=== PATIENT | female | born 1990 | race Caucasian/White ===

== ENCOUNTER 2017-02-22 11:37 | Emergency (ER) | payer MEDICAID ==
[~2017-02-22] VITALS: Ht 162.6 cm; Wt 72.6 kg
[~2017-02-22 11:37] MED LIST: BCP; PREN-129 PO
[2017-02-22 12:12] LABS: Urine Bilirubin Negative (Negative); Urine Blood Negative /uL (Negative); Urine Color Yellow (Yellow); Urine Glucose Normal (Normal); Urine Ketone Negative (Negative); Urine Nitrite Negative (Negative); Urine RBC 2 /hpf (0 - 4); Urine Squamous Epithelial Cell FEW /hpf (<5); Urine Urobilinogen Normal (Negative)
[2017-02-22 12:33] LABS: Basophils # (auto) 0.1 uL; CONDITION Y; Eosinophils # (auto) 0.1 uL; Eosinophils % (auto) 1.5 % (0.0-7.0); Hematocrit 41.4 % (36.0-46.0); Hemoglobin 14.3 g/dL (12.2-16.2); Lymphocytes # (auto) 1.6 uL; Lymphocytes % (auto) 24.3 % (10.0-50.0); Mean Corpuscular Hemoglobin 31.2 pg (28.0-32.0); Mean Corpuscular Hgb Conc. 34.5 g/dL (32.0-36.0); Mean Corpuscular Volume 90.3 fL (80.0-100.0); Mean Platelet Volume 7.8 fL (7.4-10.4); Monocytes # (auto) 0.3 uL; Neutrophils # (auto) 4.6 uL; Neutrophils % (auto) 68.2 % (37.0-80.0); Platelet Count (auto) 289 10^3/uL (140-450); Red Cell Distribution Width 12.8 % (11.6-16.0); White Blood Cell 6.7 10^3/uL (4.4-10.8)
[2017-02-22 12:58] LABS: Albumin 3.8 g/dL (3.4-5.0); BUN/Creatinine Ratio 18.5; Bilirubin, Total 0.5 mg/dL (0.2-1.0); Calcium 8.6 mg/dL (8.5-10.1); Total Protein 7.3 g/dL (6.4-8.2)
[2017-02-22 12:59] VITALS: BP 126/63
[2017-02-22] MEDS ORDERED: cefTRIAXone SOD 1,000 MG VL IM ONE (13:15)
[2017-02-22] MEDS ORDERED: KETOROLAC TROMETH 60MG/2ML VIAL IM ONE (13:15)
== END 2017-02-22 13:13 | disposition home or self-care (01) ==
LOC: ER 11:37
DX: N12 Tubulo-interstitial nephritis, not specified as acute or chronic (principal); N39.0 Urinary tract infection, site not specified; J45.909 Unspecified asthma, uncomplicated; Z79.899 Other long term (current) drug therapy
CPT/HCPCS: 36415; 80053; 81001; 81025; 85025; 96372; 99284; J0696; J1885

== ENCOUNTER 2017-03-08 21:40 | Emergency (ER) | payer MEDICAID ==
[~2017-03-08] VITALS: Ht 162.6 cm; Wt 72.6 kg
[2017-03-08 22:16] VITALS: BP 129/73
[2017-03-08 22:40] LABS: Urine Bilirubin Negative (Negative); Urine Blood Negative /uL (Negative); Urine Color Yellow (Yellow); Urine Glucose Normal (Normal); Urine Ketone Negative (Negative); Urine Mucus FEW (None Seen); Urine Nitrite Negative (Negative); Urine RBC 1 /hpf (0 - 4); Urine Squamous Epithelial Cell FEW /hpf (<5); Urine Urobilinogen Normal (Negative)
[2017-03-08 22:48] LABS: Basophils # (auto) 0 uL; Basophils % (auto) 0.4 % (0.0-2.0); CONDITION Y; Eosinophils # (auto) 0.2 uL; Eosinophils % (auto) 1.9 % (0.0-7.0); Hemoglobin 14.3 g/dL (12.2-16.2); Lymphocytes # (auto) 2.2 uL; Lymphocytes % (auto) 26.7 % (10.0-50.0); Mean Corpuscular Hemoglobin 31.2 pg (28.0-32.0); Mean Corpuscular Hgb Conc. 34.1 g/dL (32.0-36.0); Mean Corpuscular Volume 91.4 fL (80.0-100.0); Mean Platelet Volume 7.6 fL (7.4-10.4); Monocytes # (auto) 0.5 uL; Monocytes % (auto) 6.4 % (0.0-12.0); Neutrophils # (auto) 5.3 uL; Neutrophils % (auto) 64.6 % (37.0-80.0); Platelet Count (auto) 368 10^3/uL (140-450); Red Cell Distribution Width 13.1 % (11.6-16.0); White Blood Cell 8.2 10^3/uL (4.4-10.8)
[2017-03-08 23:00] LABS: INR 1.06 (0.9-1.15); Partial Thromboplastin Time 27.2 sec (22.64-33.71); Prothrombin Time 11.6 sec (9.37-12.3)
[2017-03-08 23:13] LABS: Albumin 3.8 g/dL (3.4-5.0); BUN/Creatinine Ratio 13.8; Bilirubin, Total 0.2 mg/dL (0.2-1.0); Calcium 9.1 mg/dL (8.5-10.1); Potassium 3.8 mmol/L (3.5-5.1); Total Protein 7.7 g/dL (6.4-8.2)
== END 2017-03-09 03:51 | disposition left against medical advice (07) ==
LOC: ER 21:48
DX: R10.9 Unspecified abdominal pain (principal); Z53.21 Procedure and treatment not carried out due to patient leaving prior to being seen by health care provider
CPT/HCPCS: 36415; 80053; 81001; 81025; 82150; 83690; 84702; 85025; 85610; 85730

== ENCOUNTER 2017-03-19 20:04 | Emergency (ER) | payer MEDICAID ==
[~2017-03-19] VITALS: Ht 162.6 cm; Wt 72.6 kg
[2017-03-19 20:51] LABS: Basophils # (auto) 0.1 uL; Basophils % (auto) 0.7 % (0.0-2.0); CONDITION Y; Eosinophils # (auto) 0.1 uL; Eosinophils % (auto) 1.3 % (0.0-7.0); Hematocrit 40.6 % (36.0-46.0); Lymphocytes # (auto) 2.2 uL; Lymphocytes % (auto) 27.7 % (10.0-50.0); Mean Corpuscular Hemoglobin 31.5 pg (28.0-32.0); Mean Corpuscular Hgb Conc. 34.5 g/dL (32.0-36.0); Mean Corpuscular Volume 91.3 fL (80.0-100.0); Mean Platelet Volume 7.5 fL (7.4-10.4); Monocytes # (auto) 0.5 uL; Monocytes % (auto) 6.1 % (0.0-12.0); Neutrophils # (auto) 5.1 uL; Neutrophils % (auto) 64.2 % (37.0-80.0); Platelet Count (auto) 323 10^3/uL (140-450); White Blood Cell 7.9 10^3/uL (4.4-10.8)
[2017-03-19 21:06] LABS: INR 1.07 (0.9-1.15); Partial Thromboplastin Time 26.5 sec (22.64-33.71); Prothrombin Time 11.7 sec (9.37-12.3)
[2017-03-19 21:17] LABS: Urine Bilirubin Negative (Negative); Urine Blood Negative /uL (Negative); Urine Color Yellow (Yellow); Urine Glucose Normal (Normal); Urine Ketone Negative (Negative); Urine Mucus FEW (None Seen); Urine Nitrite Negative (Negative); Urine RBC 4 /hpf (0 - 4); Urine Squamous Epithelial Cell FEW /hpf (<5); Urine Urobilinogen Normal (Negative)
[2017-03-19 21:23] LABS: Albumin 3.8 g/dL (3.4-5.0); BUN/Creatinine Ratio 13.5; Bilirubin, Total 0.2 mg/dL (0.2-1.0); Potassium 3.8 mmol/L (3.5-5.1); Total Protein 7.7 g/dL (6.4-8.2)
[2017-03-19] MEDS ORDERED: cefTRIAXone 1GM/50ML D5W 50 ML IV ONE (22:15)
[2017-03-19] MEDS ORDERED: ONDANSETRON HCL 4 MG/2 ML VIAL IV ONE (22:15)
[2017-03-19] MEDS ORDERED: KETOROLAC TROMETH 30 MG/ML 1ML VIAL IV ONE (22:15)
[2017-03-19] MEDS ORDERED: HYDROmorphone HCL 2 MG/ML VL IV ONE (22:15)
[2017-03-19] MEDS ORDERED: diphenhdrAMINE HCL 50 MG/1 ML VL ONE (23:01)
[2017-03-19] MEDS ORDERED: diphenhdrAMINE HCL 50 MG/1 ML VL IV ONE (23:15)
[2017-03-19 23:54] VITALS: BP 110/62
== END 2017-03-19 23:57 | disposition home or self-care (01) ==
LOC: ER 20:07
DX: N12 Tubulo-interstitial nephritis, not specified as acute or chronic (principal); J45.909 Unspecified asthma, uncomplicated
CPT/HCPCS: 36415; 74176; 80053; 81001; 81025; 82150; 83690; 85025; 85610; 85730; 87086; 96365; 96375; 99285; J0696; J1170; J1200; J1885; J2405

== ENCOUNTER 2017-12-15 21:54 | Emergency (ER) | payer MEDICAID | END 2017-12-15 22:10 | disposition left against medical advice (07) | LOC: ER 22:01 | DX: R00.2 Palpitations (principal); Z53.21 Procedure and treatment not carried out due to patient leaving prior to being seen by health care provider ==

== ENCOUNTER 2018-04-29 19:57 | Emergency (ER) | payer MEDICAID ==
[~2018-04-29] VITALS: Ht 162.6 cm; Wt 83.9 kg
[2018-04-29 20:37] VITALS: BP 121/86
== END 2018-04-30 02:10 | disposition home or self-care (01) ==
LOC: ER 19:57
DX: T19.2XXA Foreign body in vulva and vagina, initial encounter (principal); J45.909 Unspecified asthma, uncomplicated; N18.9 Chronic kidney disease, unspecified; Z30.8 Encounter for other contraceptive management; X58.XXXA Exposure to other specified factors, initial encounter; Y93.89 Activity, other specified; Y99.8 Other external cause status; Y92.89 Other specified places as the place of occurrence of the external cause

== ENCOUNTER 2018-05-18 21:13 | Emergency (ER) | payer MEDICAID ==
[~2018-05-18] VITALS: Ht 162.6 cm; Wt 81.6 kg
[2018-05-18 22:32] LABS: Urine Bacteria MANY /hpf (None Seen); Urine Blood Negative /uL (Negative); Urine Mucus FEW (None Seen); Urine Specific Gravity 1.022 (1.001-1.035); Urine WBC 3 /hpf (0 - 5)
[2018-05-18 22:40] LABS: Basophils # (auto) 0.1 uL; Basophils % (auto) 0.9 % (0.0-2.0); Eosinophils # (auto) 0.1 uL; Eosinophils % (auto) 0.6 % (0.0-7.0); Hematocrit 42.2 % (36.0-46.0); Hemoglobin 14.3 g/dL (12.2-16.2); Lymphocytes # (auto) 1.7 uL; Lymphocytes % (auto) 17.4 % (10.0-50.0); Mean Corpuscular Hemoglobin 31.7 pg (28.0-32.0); Mean Corpuscular Volume 93.2 fL (80.0-100.0); Monocytes # (auto) 0.6 uL; Monocytes % (auto) 6.2 % (0.0-12.0); Neutrophils # (auto) 7.5 uL; Neutrophils % (auto) 74.9 % (37.0-80.0); Nucleated Red Blood Cells % 0.1 %; Platelet Count (auto) 303 10^3/uL (140-450); Red Blood Cells 4.52 10^6/uL (4.0-5.20); Red Cell Distribution Width 12.7 % (11.8-14.3)
[2018-05-18 23:03] LABS: Albumin 3.3 g/dL (3.4-5.0); BUN/Creatinine Ratio 14.2; Calcium 8.3 mg/dL (8.5-10.1); Potassium 3.8 mmol/L (3.5-5.1)
[2018-05-18 23:06] LABS: Bilirubin, Total 0.2 mg/dL (0.2-1.0); Total Protein 7.2 g/dL (6.4-8.2)
[2018-05-19] MEDS ORDERED: KETOROLAC TROMETH 60MG/2ML VIAL IM ONE (03:00)
[2018-05-19] MEDS ORDERED: KETOROLAC TROMETH 30 MG/ML 1ML VIAL IV ONE (03:15)
[2018-05-19 04:00] VITALS: BP 122/76
== END 2018-05-19 04:08 | disposition home or self-care (01) ==
LOC: ER 21:13
DX: N20.0 Calculus of kidney (principal); N18.9 Chronic kidney disease, unspecified; J45.909 Unspecified asthma, uncomplicated
CPT/HCPCS: 36415; 74176; 80053; 81001; 81025; 83690; 85025; 96374; 99285; J1885

== ENCOUNTER 2018-06-09 20:54 | Emergency (ER) | payer MEDICAID ==
[~2018-06-09] VITALS: Ht 162.6 cm; Wt 81.6 kg
[2018-06-09 21:16] VITALS: BP 139/79
[2018-06-09 21:57] LABS: Basophils # (auto) 0.1 uL; Basophils % (auto) 1.2 % (0.0-2.0); Eosinophils # (auto) 0.1 uL; Eosinophils % (auto) 1.3 % (0.0-7.0); Hematocrit 42.8 % (36.0-46.0); Hemoglobin 14.6 g/dL (12.2-16.2); Lymphocytes # (auto) 2.3 uL; Lymphocytes % (auto) 25.5 % (10.0-50.0); Mean Corpuscular Hgb Conc. 34.2 g/dL (32.0-36.0); Mean Corpuscular Volume 93.7 fL (80.0-100.0); Monocytes # (auto) 0.6 uL; Monocytes % (auto) 6.8 % (0.0-12.0); Neutrophils # (auto) 5.9 uL; Neutrophils % (auto) 65.2 % (37.0-80.0); Platelet Count (auto) 340 10^3/uL (140-450); Red Blood Cells 4.57 10^6/uL (4.0-5.20); Red Cell Distribution Width 12.4 % (11.8-14.3)
[2018-06-09 22:19] LABS: Albumin 3.5 g/dL (3.4-5.0); BUN/Creatinine Ratio 12.7; Calcium 8.7 mg/dL (8.5-10.1)
[2018-06-09 22:21] LABS: Bilirubin, Total 0.2 mg/dL (0.2-1.0); Total Protein 7.5 g/dL (6.4-8.2)
[2018-06-09 22:36] LABS: Urine Bacteria NONE SEEN /hpf (None Seen); Urine Blood Negative /uL (Negative); Urine Specific Gravity 1.021 (1.001-1.035); Urine WBC 5 /hpf (0 - 5)
== END 2018-06-10 01:07 | disposition left against medical advice (07) ==
LOC: ER 20:54
DX: R73.9 Hyperglycemia, unspecified (principal); Z53.21 Procedure and treatment not carried out due to patient leaving prior to being seen by health care provider
CPT/HCPCS: 36415; 80053; 81001; 81025; 82962; 83036; 83735; 85025

== ENCOUNTER 2018-07-01 16:08 | Emergency (ER) | payer MEDICAID ==
[~2018-07-01] VITALS: Ht 162.6 cm; Wt 81.6 kg
[2018-07-01 16:31] VITALS: BP 114/56
== END 2018-07-01 18:28 | disposition left against medical advice (07) ==
LOC: ER 16:17
DX: M25.572 Pain in left ankle and joints of left foot (principal); Z53.21 Procedure and treatment not carried out due to patient leaving prior to being seen by health care provider; W01.0XXA Fall on same level from slipping, tripping and stumbling without subsequent striking against object, initial encounter; Y93.89 Activity, other specified; Y92.89 Other specified places as the place of occurrence of the external cause; Y99.8 Other external cause status

== ENCOUNTER 2019-02-23 19:26 | Emergency (ER) | payer MEDICAID ==
[~2019-02-23] VITALS: Ht 160 cm; Wt 83.9 kg
[2019-02-23 20:28] LABS: Basophils # (auto) 0.1 uL; Basophils % (auto) 0.7 % (0.0-2.0); Eosinophils # (auto) 0.1 uL; Eosinophils % (auto) 1.5 % (0.0-7.0); Hematocrit 42.4 % (36.0-46.0); Hemoglobin 14.7 g/dL (12.2-16.2); Lymphocytes # (auto) 2.2 uL; Lymphocytes % (auto) 24.2 % (10.0-50.0); Mean Corpuscular Hemoglobin 32.2 pg (28.0-32.0); Mean Corpuscular Hgb Conc. 34.6 g/dL (32.0-36.0); Monocytes # (auto) 0.6 uL; Monocytes % (auto) 7.1 % (0.0-12.0); Neutrophils % (auto) 66.5 % (37.0-80.0); Platelet Count (auto) 322 10^3/uL (140-450); Red Blood Cells 4.56 10^6/uL (4.0-5.20); Red Cell Distribution Width 12.8 % (11.8-14.3); White Blood Cell 9.1 10^3/uL (4.4-10.8)
[2019-02-23 20:35] LABS: Urine Bacteria FEW /hpf (None Seen); Urine Blood Negative /uL (Negative); Urine Mucus FEW (None Seen); Urine Specific Gravity 1.016 (1.001-1.035); Urine WBC 13 /hpf (0 - 5)
[2019-02-23 20:44] LABS: Albumin 3.6 g/dL (3.4-5.0); Calcium 8.8 mg/dL (8.5-10.1); Potassium 4.1 mmol/L (3.5-5.1)
[2019-02-23 20:47] LABS: BUN/Creatinine Ratio 14.6; Bilirubin, Total 0.3 mg/dL (0.2-1.0); Total Protein 7.4 g/dL (6.4-8.2)
[2019-02-23] MEDS ORDERED: SODIUM CHLORIDE 0.9% 1,000 ML IV ONE ×2 (23:00)
[2019-02-23] MEDS ORDERED: ONDANSETRON HCL 4 MG/2 ML VIAL IV ONE (23:00)
[2019-02-23] MEDS ORDERED: MORPHINE SULFATE 4 MG/ML SYR/VIAL IV ONE (23:00)
[2019-02-23 23:43] LABS: Amylase 38 U/L (25-115); Lipase 127 U/L (73-393)
[2019-02-24 00:23] VITALS: BP 114/76
[2019-02-24] MEDS ORDERED: cefTRIAXone 1GM/50ML D5W 50 ML IV ONE (00:30)
== END 2019-02-24 00:54 | disposition home or self-care (01) ==
LOC: ER 19:26
DX: N39.0 Urinary tract infection, site not specified (principal); R19.7 Diarrhea, unspecified; R11.0 Nausea
CPT/HCPCS: 36415; 80053; 81001; 82150; 83690; 84702; 85025; 96361; 96365; 96375; 99283; J0696; J2270; J2405; J7030

== ENCOUNTER 2019-04-08 17:04 | Emergency (ER) | payer MEDICAID ==
[~2019-04-08] VITALS: Ht 160 cm; Wt 81.6 kg
[2019-04-08 17:59] LABS: Urine Pregnacy Test Negative (Negative)
[2019-04-08 18:01] LABS: Urine Bacteria FEW /hpf (None Seen); Urine Blood TRACE /uL (Negative); Urine Hyaline Cast FEW /lpf (0 - 2); Urine Mucus FEW (None Seen); Urine WBC 19 /hpf (0 - 5)
[2019-04-08 18:09] LABS: Alcohol, Urine < 3.0 mg/dL (0-5); Amphetamine Screen, Urine NEGATIVE (NEGATIVE); Barbiturate Scree,Urine NEGATIVE (NEGATIVE); Benzodiazephine Screen, Urine NEGATIVE (NEGATIVE); Cannabinoid Screen, Urine NEGATIVE (NEGATIVE); Cocaine Screen, Urine NEGATIVE (NEGATIVE); Opiate Scree,Urine NEGATIVE (NEGATIVE); Phencyclidine Screen, Urine NEGATIVE (NEGATIVE)
[2019-04-08 18:13] LABS: Basophils # (auto) 0.1 uL; Basophils % (auto) 0.7 % (0.0-2.0); Eosinophils # (auto) 0.1 uL; Eosinophils % (auto) 0.9 % (0.0-7.0); Hematocrit 42.6 % (36.0-46.0); Hemoglobin 14.5 g/dL (12.2-16.2); Lymphocytes # (auto) 2.2 uL; Lymphocytes % (auto) 26.7 % (10.0-50.0); Monocytes # (auto) 0.7 uL; Monocytes % (auto) 8.2 % (0.0-12.0); Neutrophils # (auto) 5.2 uL; Neutrophils % (auto) 63.5 % (37.0-80.0); Platelet Count (auto) 321 10^3/uL (140-450); Red Blood Cells 4.53 10^6/uL (4.0-5.20); Red Cell Distribution Width 12.9 % (11.8-14.3); White Blood Cell 8.2 10^3/uL (4.4-10.8)
[2019-04-08 18:31] LABS: Albumin 3.7 g/dL (3.4-5.0); BUN/Creatinine Ratio 9.4; Calcium 9.2 mg/dL (8.5-10.1); Potassium 3.8 mmol/L (3.5-5.1)
[2019-04-08 18:34] LABS: Bilirubin, Total 0.3 mg/dL (0.2-1.0); Total Protein 7.5 g/dL (6.4-8.2)
[2019-04-08] MEDS ORDERED: PHENAZOPYRIDINE HCL 100 MG TAB PO ONE (19:15)
[2019-04-08 19:33] VITALS: BP 108/75
== END 2019-04-08 19:51 | disposition home or self-care (01) ==
LOC: ER 17:07
DX: N39.0 Urinary tract infection, site not specified (principal); J45.909 Unspecified asthma, uncomplicated; Z87.442 Personal history of urinary calculi
CPT/HCPCS: 36415; 80053; 80307; 81001; 81025; 83690; 85025

== ENCOUNTER 2019-05-18 17:33 | Emergency (ER) | payer MEDICAID ==
[~2019-05-18] VITALS: Ht 162.6 cm; Wt 81.6 kg
[2019-05-18 18:15] VITALS: BP 142/70
== END 2019-05-18 23:01 | disposition left against medical advice (07) ==
LOC: ER 17:49
DX: M79.671 Pain in right foot (principal); Z53.21 Procedure and treatment not carried out due to patient leaving prior to being seen by health care provider

== ENCOUNTER 2019-08-24 19:46 | Emergency (ER) | payer MEDICAID | END 2019-08-24 20:45 | disposition left against medical advice (07) | LOC: ER 19:49 | DX: M25.531 Pain in right wrist (principal); Z53.21 Procedure and treatment not carried out due to patient leaving prior to being seen by health care provider ==

== ENCOUNTER 2020-01-10 19:18 | Emergency (ER) | payer MEDICAID ==
[~2020-01-10] VITALS: Ht 160 cm; Wt 81.6 kg
[2020-01-10 21:04] VITALS: BP 117/77
== END 2020-01-10 22:28 | disposition home or self-care (01) ==
LOC: ER 19:18
DX: H01.004 Unspecified blepharitis left upper eyelid (principal); J45.909 Unspecified asthma, uncomplicated; N18.9 Chronic kidney disease, unspecified; Z87.442 Personal history of urinary calculi

== ENCOUNTER 2020-04-15 20:39 | Emergency (ER) | payer MEDICAID ==
[~2020-04-15] VITALS: Ht 160 cm; Wt 86.2 kg
[2020-04-15 21:30] LABS: Urine Bacteria FEW /hpf (None Seen); Urine Blood Negative /uL (Negative); Urine Mucus FEW (None Seen); Urine Specific Gravity 1.015 (1.001-1.035); Urine WBC 30 /hpf (0 - 5)
[2020-04-15] MEDS ORDERED: KETOROLAC TROMETH 60MG/2ML VIAL IM ONE (22:45)
[2020-04-15] MEDS ORDERED: cefTRIAXone SOD 1,000 MG VL IM ONE (22:45)
[2020-04-15 23:06] LABS: Basophils # (auto) 0.1 10 ^3/uL (0-0.2); Basophils % (auto) 0.9 % (0.0-2.0); Eosinophils # (auto) 0.1 10 ^3/uL (0-0.8); Eosinophils % (auto) 1.6 % (0.0-7.0); Hematocrit 41.1 % (36.0-46.0); Hemoglobin 13.9 g/dL (12.2-16.2); Lymphocytes # (auto) 2.8 10 ^3/uL (0.4-5.4); Lymphocytes % (auto) 31.1 % (10.0-50.0); Mean Corpuscular Hemoglobin 32.1 pg (28.0-32.0); Mean Corpuscular Hgb Conc. 33.8 g/dL (32.0-36.0); Mean Corpuscular Volume 95.1 fL (80.0-100.0); Monocytes # (auto) 0.6 10 ^3/uL (0-1.3); Monocytes % (auto) 7.1 % (0.0-12.0); Neutrophils # (auto) 5.4 10 ^3/uL (1.6-8.6); Neutrophils % (auto) 59.3 % (37.0-80.0); Platelet Count (auto) 323 10^3/uL (140-450); Red Blood Cells 4.33 10^6/uL (4.0-5.20); Red Cell Distribution Width 12.5 % (11.8-14.3); White Blood Cell 9.1 10^3/uL (4.4-10.8)
[2020-04-15 23:30] LABS: Albumin 3.6 g/dL (3.4-5.0); Calcium 9.1 mg/dL (8.5-10.1); Potassium 3.9 mmol/L (3.5-5.1)
[2020-04-15 23:32] LABS: BUN/Creatinine Ratio 13.9
[2020-04-15 23:34] LABS: Bilirubin, Total 0.3 mg/dL (0.2-1.0); Total Protein 7.2 g/dL (6.4-8.2)
[2020-04-16 01:00] VITALS: BP 120/70
== END 2020-04-16 00:49 | disposition home or self-care (01) ==
LOC: ER 20:39
DX: N20.0 Calculus of kidney (principal); N39.0 Urinary tract infection, site not specified; N83.201 Unspecified ovarian cyst, right side; K42.9 Umbilical hernia without obstruction or gangrene; N18.3 Chronic kidney disease, stage 3 (moderate); J45.909 Unspecified asthma, uncomplicated
CPT/HCPCS: 36415; 74176; 76830; 76856; 80053; 81001; 84702; 85025

== ENCOUNTER 2021-02-17 13:33 | Emergency (ER) | payer MEDICAID ==
[~2021-02-17] VITALS: Ht 160 cm; Wt 90.7 kg
[2021-02-17 13:42] VITALS: BP 129/77
[2021-02-17] MEDS ORDERED: KETOROLAC TROMETH 30 MG/ML 1ML VIAL IV ONE (14:00)
[2021-02-17] MEDS ORDERED: SODIUM CHLORIDE 0.9% 1,000 ML IVB ONE (14:00)
[2021-02-17 14:30] LABS: Basophils # (auto) 0 10 ^3/uL (0-0.2); Basophils % (auto) 0.4 % (0.0-2.0); Eosinophils # (auto) 0.1 10 ^3/uL (0-0.8); Eosinophils % (auto) 0.7 % (0.0-7.0); Hematocrit 42.1 % (36.0-46.0); Hemoglobin 14.7 g/dL (12.2-16.2); Lymphocytes # (auto) 1.6 10 ^3/uL (0.4-5.4); Lymphocytes % (auto) 18.3 % (10.0-50.0); Mean Corpuscular Hemoglobin 32.7 pg (28.0-32.0); Mean Corpuscular Hgb Conc. 34.9 g/dL (32.0-36.0); Mean Corpuscular Volume 93.9 fL (80.0-100.0); Monocytes # (auto) 0.4 10 ^3/uL (0-1.3); Monocytes % (auto) 4.7 % (0.0-12.0); Neutrophils # (auto) 6.5 10 ^3/uL (1.6-8.6); Neutrophils % (auto) 75.9 % (37.0-80.0); Nucleated Red Blood Cells % 0.1 %; Red Blood Cells 4.48 10^6/uL (4.0-5.20); Red Cell Distribution Width 12.7 % (11.8-14.3); White Blood Cell 8.6 10^3/uL (4.4-10.8)
[2021-02-17 14:47] LABS: Albumin 3.8 g/dL (3.4-5.0); Calcium 8.7 mg/dL (8.5-10.1)
[2021-02-17 14:49] LABS: BUN/Creatinine Ratio 14.1
[2021-02-17 14:52] LABS: Bilirubin, Total 0.6 mg/dL (0.2-1.0); Total Protein 7.6 g/dL (6.4-8.2)
[2021-02-17 14:53] LABS: Urine Bacteria FEW /hpf (None Seen); Urine Blood Negative /uL (Negative); Urine Mucus FEW (None Seen); Urine Specific Gravity 1.022 (1.001-1.035); Urine WBC 7 /hpf (0 - 5)
== END 2021-02-17 16:00 | disposition home or self-care (01) ==
LOC: ER 13:33
DX: N39.0 Urinary tract infection, site not specified (principal); N18.9 Chronic kidney disease, unspecified; J45.909 Unspecified asthma, uncomplicated; E78.5 Hyperlipidemia, unspecified; Z87.891 Personal history of nicotine dependence; Z79.899 Other long term (current) drug therapy
CPT/HCPCS: 36415; 74176; 80053; 81001; 81025; 85025; 85049; 96361; 96374; 99284; J1885; J7030

== ENCOUNTER 2023-02-25 13:38 | Emergency (ER) | payer MEDICAID | END 2023-02-25 14:05 | disposition left against medical advice (07) | LOC: ER 13:38 | DX: S93.401A Sprain of unspecified ligament of right ankle, initial encounter (principal); Z53.21 Procedure and treatment not carried out due to patient leaving prior to being seen by health care provider; X58.XXXA Exposure to other specified factors, initial encounter; Y93.89 Activity, other specified; Y92.89 Other specified places as the place of occurrence of the external cause; Y99.8 Other external cause status ==

== ENCOUNTER 2024-10-14 15:47 | Emergency (ER) | payer MEDICAID, OTHER, SELFPAY ==
[~2024-10-14] VITALS: Ht 160 cm; Wt 87.5 kg
--- NOTE | 2024-10-14 16:37 | DVH ---
EXAM: CT Head Without Intravenous Contrast CLINICAL INDICATION: Hit with baseball TECHNIQUE: Axial computed tomography images of the head/brain without intravenous contrast. This CT exam was performed using one or more of the following dose reduction techniques: automated exposure control, adjustment of the mA and/or kV according to patient size, and/or use of iterative reconstru ction technique. CONTRAST: RADIATION DOSE: CTDIvol = 52.9 mGy, DLP = 848.04 mGy-cm COMPARISON: None FINDINGS: BRAIN AND EXTRA-AXIAL SPACES: No acute intracranial hemorrhage, midline shift or mass effect. If sy mptoms persist, further evaluation with MRI is recommended. No significant white matter disease. BONES/JOINTS: Unremarkable. No acute fracture. SOFT TISSUES: Unremarkable. SINUSES: Unremarkable as visualized. No acute sinusitis. MASTOID AIR CELLS: Unremarkable as visualized. No mastoid effusion. OTHER FINDINGS: . ... IMPRESSION: No acute intracranial hemorrhage, midline shift or mass effect. If symptoms persist, further evaluat ion with MRI is recommended.
--- NOTE | 2024-10-14 16:48 | ED.PDOC ---
HPI (NEURO) HPI Comments 34 year old presents with a chief complaint of right-sided headache after she was hit with a baseball two days ago. Pain rated 10/10. Denies any blurred vision dizziness swelling nausea vomiting diarrhea Started Admits of water per day Denies fever, chills, night sweats Denies persistent nausea Denies vomiting Denies thunderclap headache Denies photophobia, phonophobia Denies head trauma around the time headache started Denies family history of brain issues persistent headaches Denies taking any blood thinner medication Denies vision/hearing changes Denies focal loss of strength/sensation or changes in speech Chief Complaint: Head Injury Time Seen by MD: 16:17 Primary Care Provider: ANDRES Rudd Notes: Nurses Notes, Medications, Allergies Information Source: Patient Mode of Arrival: Ambulatory Past Medical History PAST MEDICAL HISTORY: Asthma, CKF, High Lipids, Kidney Stones, UTI'S Surgical History: CORPORATE CLAIMS EXAMINER History: No Pertinent CORPORATE CLAIMS EXAMINER History Family History Family History: Family hx of DM, Family hx of HTN Social History Smoker: Quit Less Than 1 Year Alcohol: Occasionally Drugs: Denies Drug Use Lives In: Home X-Ray, Labs, Meds, VS Vital Signs Date Time Temp Pulse Resp B/P (MAP) Pulse Ox O2 Delivery O2 Flow Rate FiO2 10/14/24 15:57 98.4 102 16 136/67 (90) 98 Current Medications Medications (Trade) Dose Ordered Sig/Freddie Route Start Time Stop Time Status Last Admin Acetaminophen/ Hydrocodone Bitart ([place] 7.5/325MG Tab) 1 tab ONCE ONCE PO 10/14/24 17:30 10/14/24 17:31 DC 10/14/24 17:34 Departure 1 Departure Time of Disposition: 16:48 Impression: Primary Impression: Blunt head trauma Qualified Codes: S09.8XXA - Other specified injuries of head, initial encounter Disposition: HOME / SELF CARE / HOMELESS Condition: Stable e-Prescriptions Acetaminophen (Acetaminophen) 500 Mg Tab 500 MG PO Q6HP PRN for 7 Days, #28 TAB 0 Refills Prov: CHEYANNE MCFADDEN AIR/OCEAN EXPORT CLERK 10/14/24 Tramadol Hcl (Tramadol Hcl) 50 Mg Tab 50 MG PO Q6HP PRN for 5 Days, #20 TAB 0 Refills Prov: CHEYANNE MCFADDEN NP 10/14/24 Discharged With: Self CHEYANNE MCFADDEN AIR/[employer] EXPORT CLERK Oct 14, 2024 16:48
[2024-10-14] MEDS: HYDROcodone-ACET 7.5/325MG TAB PO ONE (17:34)
[2024-10-14 17:37] VITALS: BP 136/67; PULSE 102; RESP 16; TEMP 98.4; O2SAT 98
[2024-10-14] MEDS ORDERED: TRAM50TA2 PO (17:37)
[2024-10-14] MEDS ORDERED: ACET500T58 PO (17:37)
== END 2024-10-14 17:41 | disposition home or self-care (01) ==
LOC: ER 15:47
DX: S09.90XA Unspecified injury of head, initial encounter (principal); E78.5 Hyperlipidemia, unspecified; J45.909 Unspecified asthma, uncomplicated; Z87.442 Personal history of urinary calculi; W21.03XA Struck by baseball, initial encounter; Y93.89 Activity, other specified; Y92.89 Other specified places as the place of occurrence of the external cause; Y99.8 Other external cause status
CPT/HCPCS: 70450

== ENCOUNTER 2025-01-05 18:01 | Emergency (ER) | payer SELFPAY ==
[~2025-01-05] VITALS: Ht 162.6 cm; Wt 88.6 kg
[~2025-01-05 18:01] MED LIST changes: +ACET500T58 PO; +TRAM50TA2 PO
[2025-01-05 18:11] VITALS: BP 126/73; RESP 19; TEMP 98.5; O2SAT 96
[2025-01-05 18:18] VITALS: PULSE 88
--- NOTE | 2025-01-05 18:25 | ECG ---
[facility] Test Date: 2025-01-05 Test Time: 18:18:02 Pat Name: ALEXIA CLINE Department: ER Room: Gender: F Food Service Clerk: DANNY : 1990 Requested By: DIEGO WHARTON Order Number: [id number] Reading MD: Joaquim Dowling Measurements Intervals [place] Rate: 88 P: 38 [place]: 118 QRS: 64 QRSD: 73 T: 47 QT: 348 QTc: 421 Interpretive Statements Sinus rhythm Borderline short [place] interval Electronically Signed On 01-06-2025 12:48:59 PDT by Joaquim Dowling Please click the below link to view image of tracing.
--- NOTE | 2025-01-05 18:35 | ED.PDOC ---
History of Present Illness HPI Comments 34 y/o F, with PMHx of CKF, DM, HLD, Asthma, and Kidney stones presents to the ED for CC of syncopal episode. Patient relays, that she had a syncopal episode x1week ago and is now experiencing right elbow pain as a result. Patient reports, pain to have increased over the course of the week. Patient denies new trauma, injury, or recent fall. No other symptoms or modifying factors present at this time. Chief Complaint: Syncope Time Seen by MD: 18:15 Primary Care Provider: ANDRES Reviewed Notes: Nurses Notes, Medications, Allergies Allergies: Coded Allergies: NO KNOWN ALLERGIES (Unverified , 05/29/10) Home Meds Active Scripts Acetaminophen (Acetaminophen) 500 Mg Tab, 500 MG PO Q6HP PRN for 7 Days, #28 TAB 0 Refills Prov:CHEYANNE MCFADDEN MARKET ANALYSIS DIRECTOR 10/14/24 Tramadol Hcl (Tramadol Hcl) 50 Mg Tab, 50 MG PO Q6HP PRN for 5 Days, #20 TAB 0 Refills Prov:CHEYANNE MCFADDEN MARKET ANALYSIS DIRECTOR 10/14/24 Reported Medications Vit W/ Ferrous Fumara () Tab, 1 TAB PO DAILY, TAB 09/20/13 [Bcp] No Conflict Check 02/08/11 Information Source: Patient Mode of Arrival: Ambulatory Severity: Moderate Timing: Days, Weeks Duration: Since onset Prehospital treatment: None Past Medical History PAST MEDICAL HISTORY: Asthma, CKF, DM, High Lipids, Kidney Stones, UTI'S Surgical History: ACID WASHER OPERATOR History: No Pertinent ACID WASHER OPERATOR History Family History Family History: Family hx of DM, Family hx of HTN Social History Smoker: Quit Less Than 1 Year Alcohol: Occasionally Drugs: Denies Drug Use Lives In: Home Constitutional: denies: chills, diaphoresis, fatigue, fever, malaise, sweats, weakness, others EENTM: denies: blurred vision, double vision, ear bleeding, ear discharge, ear drainage, ear pain, ear ringing, eye pain, eye redness, hearing loss, mouth pain, mouth swelling, nasal discharge, nose bleeding, nose congestion, nose pain, photophobia, tearing, throat pain, throat swelling, voice changes, others Respiratory: denies: cough, hemoptysis, orthopnea, SOB at rest, shortness of breath, SOB with excertion, stridor, wheezing, others Cardiovascular: denies: chest pain, dizzy spells, diaphoresis, Dyspnea on exertion, edema, irregular heart beat, left arm pain, lightheadedness, palpitations, PND, syncope, others Gastrointestinal: denies: abdomen distended, abdominal pain, blood streaked bowels, constipated, diarrhea, dysphagia, difficulty swallowing, hematemesis, melena, nausea, poor appetite, poor fluid intake, rectal bleeding, rectal pain, vomiting, others Genitourinary: denies: abnormal vagina bleeding, burning, dyspareunia, dysuria, flank pain, frequency, hematuria, incontinence, pain, , vagina discharge, urgency, others Neurological: reports: fainting; denies: dizziness, headache, left sided numbness, left sided weakness, numbness, paresthesia, pre-existing deficit, right sided numbness, right sided weakness, seizure, speech problems, tingling, tremors, weakness, others Musculoskeletal: reports: others (right elbow pain); denies: back pain, gout, joint pain, joint swelling, muscle pain, muscle stiffness, neck pain Integumetry: denies: bruises, change in color, change in hair/nails, dryness, laceration, lesions, lumps, rash, wounds, others Allergic/Immunocompromised: denies: Difficulty Healing, Frequent Infections, Hives, Itching, others Hematologic/Lymphatic: denies: anemia, blood clots, easy bleeding, easy bruising, swollen glands, others Endocrine: denies: excessive hunger, excessive sweating, excessive thirst, excessive urination, flushing, intolerance to cold, intolerance to heat, unexplained weight gain, unexplained weight loss, others Psychiatric: denies: anxiety, bipolar disorder, depression, hopeless, panic disorder, schizophrenia, sleepless, suicidal, others All Other Systems: Reviewed and Negative Physical Exam General Appearance: No Apparent Distress HEENT: Normal ENT Inspection, Pharynx Normal, TMs Normal Neck: Full Range of Motion, Non-Tender, Normal, Normal Inspection Respiratory: Chest Non-Tender, Lungs Clear, No Accessory Muscle Use, No Respiratory Distress, Normal Breath Sounds Cardiovascular: No Edema, No JVD, No Murmur, No Gallop, Normal Peripheral Pulses, Regular Rate/Rhythm Breast Exam: Deferred Gastrointestinal: No Organomegaly, Non Tender, No Pulsatile Mass, Normal Bowel Sounds, Soft Genitalia: Deferred Pelvic: Deferred Rectal: Deferred Extremities: No calf tenderness, Normal capillary refill, No pedal edema Musculoskeletal : Location: Right Extremity Location: Elbow Apperance: Swelling, Tenderness: Mild Neurologic: Alert, senior animator II-XII nml as Tested, No Motor Deficits, Normal Affect, Normal Mood, No Sensory Deficits Cerebellar Function: Normal Reflexes: Normal Skin: Dry, Normal Color, Warm Lymphatic: No Adenopathy Was a procedure done? Was a procedure done?: No Differential Dx Considerations may include: Fracture, strain, contusion X-Ray, Labs, Meds, VS Vital Signs Date Time Temp Pulse Resp B/P (MAP) Pulse Ox O2 Delivery O2 Flow Rate FiO2 01/05/25 18:18 88 01/05/25 18:11 98.5 83 19 126/73 (90) 96 98.5 Lab Test 01/05/25 18:30 01/05/25 18:09 Range/Units White Blood Count 9.1 4.4-10.8 10^3/uL Red Blood Count 4.46 4.0-5.20 10^6/uL Hemoglobin 14.6 12.2-16.2 g/dL Hematocrit 40.6 36.0-46.0 % Mean Corpuscular Volume 90.9 80.0-100.0 fL Mean Corpuscular Hemoglobin 32.7 H 28.0-32.0 pg Mean Corpuscular Hemoglobin Concent 35.9 32.0-36.0 g/dL Red Cell Distribution Width 12.4 11.8-14.3 % Platelet Count 391 140-450 10^3/uL Mean Platelet Volume 6.9 6.9-10.8 fL Neutrophils (%) (Auto) 70.9 37.0-80.0 % Lymphocytes (%) (Auto) 21.9 10.0-50.0 % Monocytes (%) (Auto) 5.3 0.0-12.0 % Eosinophils (%) (Auto) 1.0 0.0-7.0 % Basophils (%) (Auto) 0.9 0.0-2.0 % Neutrophils # (Auto) 6.5 1.6-8.6 10 ^3/uL Lymphocytes # (Auto) 2.0 0.4-5.4 10 ^3/uL Monocytes # (Auto) 0.5 0-1.3 10 ^3/uL Eosinophils # (Auto) 0.1 0-0.8 10 ^3/uL Basophils # (Auto) 0.1 0-0.2 10 ^3/uL Nucleated Red Blood Cells 0.1 % Sodium Level 139 136-145 mmol/L Potassium Level 3.9 3.5-5.1 mmol/L Chloride Level 106 98-107 mmol/L Carbon Dioxide Level 24 20-31 mmol/L Anion Gap 9 5-15 Blood Urea Nitrogen 19 9-23 mg/dL Creatinine 1.29 H 0.550-1.02 mg/dL Glomerular Filtration Rate Calc 56 >90 mL/min BUN/Creatinine Ratio 14.7 10.0-20.0 Serum Glucose 133 H 74-106 mg/dL Calcium Level 10.0 8.7-10.4 mg/dL POC Glucose 117 H 70-106 mg/dl RIGHT ELBOW XRAY: IMPRESSION: 1. No acute bony abnormality. The patient's CBC and chemistry panel are within normal limits The patient is being discharged The patient will follow up with the primary care doctor's The patient will return to the emergency department's condition worsens Images Reviewed?: Images reviewed and evaluated by me Time of 1ST Reevaluation: 18:45 Reevaluation 1ST: Unchanged Patient Education/Counseling: Diagnosis, Treatment, Prognosis, Need For Follow Up Family Education/Counseling: No Family Present Departure 1 Departure Time of Disposition: 19:48 Impression: Primary Impression: Episode of syncope Qualified Codes: R55 - Syncope and collapse Additional Impression: Contusion of right elbow Qualified Codes: S50.01XA - Contusion of right elbow, initial encounter Disposition: HOME / SELF CARE / HOMELESS Condition: Fair Discharged With: Self Critical Care Note Critical Care Time?: No Stability Stability form required: No Heart Score Heart Score: Heart Score Response (Comments) Value History N/A 0 EKG N/A 0 Age N/A 0 Risk Factors N/A 0 Troponin N/A 0 Total 0 I personally scribed for DIEGO WHARTON MD ([email or web address]) on 01/05/25 at 18:35. Electronically submitted by Stacy Shultz ([email or web address]). I personally scribed for DIEGO WHARTON MD ([email or web address]) on 01/05/25 at 19:20. Electronically submitted by Stacy Shultz ([email or web address]). DIEGO WHARTON MD January 05, 2025 18:35
[2025-01-05 18:45] LABS: Basophils # (auto) 0.1 10 ^3/uL (0-0.2); Basophils % (auto) 0.9 % (0.0-2.0); Eosinophils # (auto) 0.1 10 ^3/uL (0-0.8); Hematocrit 40.6 % (36.0-46.0); Hemoglobin 14.6 g/dL (12.2-16.2); Lymphocytes % (auto) 21.9 % (10.0-50.0); Mean Corpuscular Hemoglobin 32.7 pg (28.0-32.0); Mean Corpuscular Hgb Conc. 35.9 g/dL (32.0-36.0); Mean Corpuscular Volume 90.9 fL (80.0-100.0); Monocytes # (auto) 0.5 10 ^3/uL (0-1.3); Monocytes % (auto) 5.3 % (0.0-12.0); Neutrophils # (auto) 6.5 10 ^3/uL (1.6-8.6); Neutrophils % (auto) 70.9 % (37.0-80.0); Nucleated Red Blood Cells % 0.1 %; Platelet Count (auto) 391 10^3/uL (140-450); Red Blood Cells 4.46 10^6/uL (4.0-5.20); Red Cell Distribution Width 12.4 % (11.8-14.3); White Blood Cell 9.1 10^3/uL (4.4-10.8)
--- NOTE | 2025-01-05 18:51 | DVH ---
CLINICAL INFORMATION: 34 years old, Female; syncope. TECHNIQUE: 2 views of the right elbow were obtained. COMPARISON: None FINDINGS: No acute fracture or dislocation. No significant arthropathy. No significant joint effusi on. Overlying soft tissues are unremarkable. IMPRESSION: 1. No acute bony abnormality.
[2025-01-05 18:57] LABS: Chloride 106 mmol/L (98-107); Potassium 3.9 mmol/L (3.5-5.1); Sodium 139 mmol/L (136-145)
[2025-01-05 18:58] LABS: Anion Gap 9 (5-15); Carbon Dioxide 24 mmol/L (20-31)
[2025-01-05 19:03] LABS: BUN/Creatinine Ratio 14.7 (10.0-20.0); Blood Urea Nitrogen 19 mg/dL (9-23)
[2025-01-05 19:08] LABS: Glucose 133 mg/dL (74-106)
--- NOTE | 2025-01-08 14:38 | ECG ---
[facility] Test Date: 2025-01-05 Test Time: 18:17:08 Pat Name: ALEXIA CLINE Department: ER Room: Gender: F Tray Delivery Aide: DANNY : 1990 Requested By: DIEGO WHARTON Order Number: [id number] Reading MD: Joaquim Dowling Measurements Intervals [place] Rate: 91 P: 60 [place]: 129 QRS: 69 QRSD: 102 T: 61 QT: 350 QTc: 431 Interpretive Statements Sinus rhythm Artifact in lead(s) I,II,III,aVR,aVL,aVF Electronically Signed On 01-09-2025 20:57:27 PDT by Joaquim Dowling Please click the below link to view image of tracing.
== END 2025-01-06 02:30 | disposition home or self-care (01) ==
LOC: ER 18:01
DX: S50.01XA Contusion of right elbow, initial encounter (principal); R55 Syncope and collapse; J45.909 Unspecified asthma, uncomplicated; E78.5 Hyperlipidemia, unspecified; E11.9 Type 2 diabetes mellitus without complications; X58.XXXA Exposure to other specified factors, initial encounter; Y93.89 Activity, other specified; Y92.89 Other specified places as the place of occurrence of the external cause; Y99.8 Other external cause status
CPT/HCPCS: 36415; 73070; 80048; 82947; 82962; 85025; 93005